=== PATIENT | male | born 1970 | race Caucasian/White ===

== ENCOUNTER 2020-02-13 11:22 | Day surgery (SDC) | payer OTHER ==
[2020-02-12 13:12] VITALS: BMI 32.5
--- NOTE | 2020-02-12 14:06 | HP ---
HISTORY AND PHYSICAL DATE OF SURGERY: 02/13/2020 Luke Marshall is a 49-year-old patient seen with progressive left shoulder pain. We discussed options for treatment, has elected to proceed with arthroscopy. Consent was obtained. PAST MEDICAL HISTORY: Gastroesophageal reflux disease, hypothyroidism. PAST SURGICAL HISTORY: None. DAILY MEDICATIONS: Levoxyl, omeprazole. ALLERGIES: None. SOCIAL HISTORY: Denies tobacco use. PHYSICAL EVALUATION OF THE LEFT SHOULDER: Flexion 80 degrees, abduction 70 degrees, external rotation is 10 degrees with pain and weakness. There is tenderness along the anterior lateral acromion rotator cuff insertion site. Impingement sign is positive at 90. Drop-arm sign positive. His distal neurovascular exam is intact. LEFT SHOULDER RADIOGRAPHS: Revealed a type 2 anterior acromion as well as acromioclavicular joint osteoarthritis. A left shoulder MRI revealed impingement, acromioclavicular joint osteoarthritis and partial rotator cuff tendon tear. IMPRESSION: 1. Left shoulder impingement with partial rotator cuff tear. 2. Left shoulder acromioclavicular joint osteoarthritis. PLAN: Left shoulder arthroscopy with subacromial decompression, possible arthroscopic rotator cuff repair, possible Kiara procedure and debridement. MMODL / IJN: [id number] /
[~2020-02-13 11:22] MED LIST: DEXAMETHASONE SOD PHOSPHATE 10 MG/ML 1 ML VIAL IV ONE; LACTATED RINGERS 1,000 ML IV SCH; LIDOCAINE 1% (10MG/ML) FOR IV START INTRADERMA PRN; MIDAZOLAM 2 MG/2 ML VIAL IV PRN; fentaNYL (PF) 50 MCG/ML 2 ML AMP IVP PRN
[2020-02-13] MEDS ORDERED: MIDAZOLAM 2 MG/2 ML VIAL IVP ONE (12:58)
--- NOTE | 2020-02-13 13:04 | P.ANPRN ---
Procedure Note - Anesthesia - Nerve Block Performed Left Interscalene Single Time Out Performed: Yes Date of Procedure: 02/13/20 Procedure Start Time: 12:50 Procedure Stop Time: 12:53 Location of Patient: PreOp Indication: Acute Post-Operative Pain, Requested by Surgeon Specifically requested for management of pain by DrSurjit: Rocky Kang Sedation Type: Sedate with meaningful contact maintained Preparation: Sterile Prep Position: Supine Needle Types: Pajunk Needle Gauge: 21 Ultrasound used to visualize needle placement: Yes Ultrasound used to observe medication spread: Yes Injectate: 0.5% Ropivacaine (see comment for volume) (20 ml) Blood Aspirated: No Pain Paresthesia on Injection Noted: No Resistance on Injection: Normal Image Stored and Saved: Yes Events: Uneventful and Well Tolerated
[2020-02-13] MEDS ORDERED: LIDOCAINE 1% INJ 10MG/ML (20 ML MDV) ONE (13:12)
[2020-02-13] MEDS ORDERED: ROPIVACAINE 5 MG/ML 30 ML VIAL ONE (13:12)
[2020-02-13] MEDS ORDERED: SUCCINYLCHOLINE CHLORIDE 100 MG/5 ML SYR IV ONE (13:12)
[2020-02-13] MEDS ORDERED: MIDAZOLAM 2 MG/2 ML VIAL ONE (13:12)
[2020-02-13] MEDS ORDERED: fentaNYL (PF) 50 MCG/ML 2 ML AMP ONE (13:12)
[2020-02-13] MEDS ORDERED: PROPOFOL 10 MG/ML 20 ML VIAL IV ONE (13:12)
[2020-02-13] MEDS ORDERED: LACTATED RINGERS 1,000 ML IV ONE (14:49)
--- NOTE | 2020-02-13 15:00 | P.OP ---
Date of Procedure: 02/13/20 Preoperative Diagnosis: Left shoulder impingement Postoperative Diagnosis: 1. Left shoulder rotator cuff tear 2. Left shoulder impingement 3. Left shoulder partial long head biceps tendon tear Procedure(s) Performed: 1. Left shoulder arthroscopic rotator cuff repair 2. Left shoulder arthroscopic subacromial decompression 3. Left shoulder arthroscopic biceps tenotomy Anesthesia: GETA, regional (Interscalene block) Surgeon: Rocky Kang Sheet Metal Foreman #1: Erik More Estimated Blood Loss (ml): 8 Pathology: none sent Condition: stable Disposition: PACU Indications for Procedure: 49-year-old patient seen with progressive left shoulder pain. After having treatment options discussed, he elected to proceed with arthroscopy. Operative Findings: See description of procedure Description of Procedure: Patient underwent an interscalene block by department of anesthesia. The patient was then taken to the operative suite. The patient underwent a general anesthetic by the department of anesthesia. The patient was placed into a lateral position and secured. There was appropriate padding of the bony prominence. Left shoulder was then prepped and draped in normal sterile orthopedic fashion. We placed the extremity in 10 pounds of longitudinal traction. A posterior incision was now made for a posterior working portal site. The trocar and cannula were inserted into the glenohumeral joint. Arthroscopy was initiated. Spinal needle was now inserted anteriorly, to ascertain the anterior working portal site. An incision was now made in that area, a trocar was inserted followed by a probe. There was some partial tearing and hyperemia long head biceps tendon. There was some superficial fraying of the anterior labrum. There was no significant chondromalacia present. The remainder labrum appeared stable. I performed arthroscopic biceps tenotomy. I debrided that superficial anterior labral tear down to stable labral tissue. I probed the area and again noted good stability about the residual labrum. At this point instruments were removed from glenohumeral joint. Utilizing the posterior working portal site, the trocar and cannula were inserted into the subacromial space. Arthroscopy initiated. I made an incision 2 fingerbreadths lateral to the acromion. I introduced my trocar followed by my ArthroCare ablator. I now began ablating thick subacromial bursal tissue, which exposed the undersurface of the anterior acromion. There was diminished subacromial space. There was a very prominent anterior acromion. A motorized bur was introduced and a subacromial decompression was performed. I also excised some osteophytes off the inferior aspect of the distal clavicle. The AC joint was visualized and noted to be only mildly arthritic. I now turned my attention to the rotator cuff tendon. I noted a intrasubstance tear along the posterior supraspinatus measuring approximately 1 cm. I debrided the margins getting down to stable tendon tissue. I now passed 2 sutures through good bites of rotator cuff tendon. I now did a [id number] repair of the intrasubstance tear with the assistance of Marito UGALDE. Residual suture was clipped. The repair was probed and found to be stable. I injected 1 mL Renyte intra-articular. Instruments now removed from the portal sites. All portal sites were approximated with nylon suture. Sterile dressings were applied followed by a shoulder sling. Erik UGALDE assisted in this case. The patient was awakened, transferred to a bed, and taken to recovery in stable condition.
[2020-02-13 15:19] VITALS: TEMP 97
[2020-02-13] MEDS ORDERED: HYDROmorphone 1 MG/ML 1 ML SYRINGE IVP ONE ×4 (15:50→16:25)
[2020-02-13 16:40] VITALS: BP 123/83; PULSE 100; RESP 16
== END 2020-02-13 17:00 | disposition home or self-care (01) ==
LOC: OR 11:22
PROVIDERS: ATTEND Orthopaedic Surgery
DX: M75.102 Unspecified rotator cuff tear or rupture of left shoulder, not specified as traumatic (principal); M75.42 Impingement syndrome of left shoulder; S46.112A Strain of muscle, fascia and tendon of long head of biceps, left arm, initial encounter; X58.XXXA Exposure to other specified factors, initial encounter; M25.712 Osteophyte, left shoulder; K21.9 Gastro-esophageal reflux disease without esophagitis; E03.9 Hypothyroidism, unspecified; F17.200 Nicotine dependence, unspecified, uncomplicated; Z98.890 Other specified postprocedural states; F41.9 Anxiety disorder, unspecified; G43.909 Migraine, unspecified, not intractable, without status migrainosus; Z79.890 Hormone replacement therapy; Z79.899 Other long term (current) drug therapy
CPT/HCPCS: 64415; 76942; 29826; 29827; Q4212; J2250; J1100; J0690; J2001; J3010; J1170; J2795; J0330; J2704

== ENCOUNTER → 2022-11-23 | Outpatient (CLI) | payer OTHER ==
--- NOTE | 2022-11-23 10:56 | US ---
EXAMINATION TYPE: US abdomen limited DATE OF EXAM: 11/23/2022 COMPARISON: NONE CLINICAL INDICATION: Male, 51 years old with history of K42.9 UMBILICAL HERNIA; Hx of hernia repair y ears ago. Assess for hernia at location of: Umbilical. Scanned area of concern. No abnormalities seen. IMPRESSION: 1. No suspicious defect in the anterior abdominal wall in the area of interest. Real-time scanning was performed by the manager medical writing utilizing Valsalva and additional dynamic maneuve rs to assess for hernia. Images of the contralateral side were also acquired for direct comparison.
== END | disposition home or self-care (01) ==
LOC: RADUSWWP 10:13
PROVIDERS: ATTEND Surgery
DX: K42.9 Umbilical hernia without obstruction or gangrene (principal); Z98.890 Other specified postprocedural states
CPT/HCPCS: 76705

== ENCOUNTER → 2022-12-12 | Outpatient (CLI) | payer OTHER ==
--- NOTE | 2022-12-14 08:23 | CT ---
EXAMINATION TYPE: CT abdomen pelvis w con DATE OF EXAM: 12/12/2022 COMPARISON: NONE HISTORY: 51-year-old male K4 2.9, Umbilical hernia. TECHNIQUE: Contiguous axial scanning of the abdomen and pelvis following administration of 100 ml Iso feliz 300 IV contrast. Delayed images through the kidneys and coronal/sagittal reconstructions perform ed. CT DLP: 1196.5 mGycm Automated exposure control for dose reduction was used. FINDINGS: LUNG BASES: No significant abnormality is appreciated. LIVER/GB: No significant abnormality is appreciated. PANCREAS: No significant abnormality is seen. SPLEEN: No significant abnormality is seen. ADRENALS: No significant abnormality is seen. KIDNEYS: 2.9 cm cortical cyst medial upper pole right kidney. Symmetric uptake and secretion of contr ast from both kidneys. BOWEL: Tiny hiatal hernia. No dilated small bowel, free fluid, or free air. Normal appendix. Oral con trast progressed to the proximal third transverse colon. There is diverticular change at the junction of descending and proximal sigmoid colon. No pericolonic inflammatory change. LYMPH NODES: No suspicious greater than 1 cm lymph node is identified. OTHER: Mild atherosclerotic calcifications infrarenal abdominal aorta. Previous umbilical mesh repair . No recurrent hernia is identified at the repair site. PELVIS: Prostate gland mildly enlarged at 4.8 cm wide. Left-sided pelvic phlebolith. No abnormal flui d collection in the pelvis or pelvic lymphadenopathy. BONES: No significant abnormality is identified. IMPRESSION: 1. PREVIOUS MESH REPAIR AT THE UMBILICUS. NO RECURRENT HERNIA AT THE REPAIR SITE. 2. TINY HIATAL HERNIA. 3. MILD PROSTATOMEGALY AT 4.8 CM WIDE.
== END | disposition home or self-care (01) ==
LOC: RADCTMAIN 15:48
PROVIDERS: ATTEND Surgery
DX: K44.9 Diaphragmatic hernia without obstruction or gangrene (principal); K42.9 Umbilical hernia without obstruction or gangrene; N40.0 Benign prostatic hyperplasia without lower urinary tract symptoms
CPT/HCPCS: 74177; Q9967